=== PATIENT | male | born 1955 | race Caucasian/White ===

== ENCOUNTER → 2018-07-01 | Outpatient (CLI) | payer BC ==
[~2018-07-01] MED LIST: ADVIL200 MG PO; ASPIRIN 81M81 MG/TA2 PO; FLONASEALLERGY NS; MULTI VITAMINS1 TAB PO; NEXIUM 20MG20 MG PO; OMEGA-3 1000 MG1 CAP PO; PYRIDIUM 100MG100 MG PO
== END ==
LOC: COL.RAD 08:11
DX: N28.89 Other specified disorders of kidney and ureter (principal)
CPT/HCPCS: Q9967

== ENCOUNTER 2018-07-02 12:20 | Day surgery (SDC) | payer BC ==
[2018-07-02] VITALS (9 sets, daily range): BP systolic 124–171; BP diastolic 62–89; PULSE 52–101; TEMP 97.7–98
[~2018-07-02] VITALS: Ht 182.9 cm; Wt 103.0 kg
[2018-07-02] MEDS ORDERED: ASPIRIN 81M81 MG/TA2 PO (13:12)
[2018-07-02] MEDS ORDERED: NEXIUM 20MG20 MG PO (13:12)
[2018-07-02] MEDS ORDERED: MULTI VITAMINS1 TAB PO (13:13)
[2018-07-02] MEDS ORDERED: OMEGA-3 1000 MG1 CAP PO (13:13)
[2018-07-02] MEDS ORDERED: FLONASEALLERGY NS (13:14)
[2018-07-02] MEDS ORDERED: ADVIL200 MG PO (13:14)
--- NOTE | 2018-07-02 13:16 | NUR ---
TO RM AT 1228- CALL LIGHT IN REACH
--- NOTE | 2018-07-02 15:18 | NUR ---
Pt taken via cart to OR by ELIA Camarillo and Grayson Storm CRNA.
--- NOTE | 2018-07-02 15:45 | NUR ---
TO RM 1 PER CART FROM PACU. ALERT ORIENTED X3, TALKING TO FAMILY AND STAFF. RECEIVED MUFFIN AND JUICE. SITTING UP AND EATING. PATEL SET DRESSINGS CLEAN DRY INTACT. C/O PAIN 3/10, DENIES NEED FOR PAIN MED
--- NOTE | 2018-07-02 16:00 | NUR ---
ATE 100% AND TOLERATED WELL. RECEIVED 2ND MUFFIN AND 2ND GLASS OF WATER.
--- NOTE | 2018-07-02 16:15 | NUR ---
ATE 100% AND TOLERATED WELL. RECEIVED A SPRITE.
--- NOTE | 2018-07-02 16:25 | NUR ---
TO RM 7 PER CART FROM PACU. ALERT ORIENTED X3, TALKING TO STAFF AND . DENIES PAIN OR DISCOMFORT AT THIS TIME. DENIES N/V RECEIVED CRACKERS AND WATER
--- NOTE | 2018-07-02 16:30 | NUR ---
UP AMBULATED TO BATHROOM. UNABLE TO VOID AT THIS TIME. DR WONG CALLED, OK'D FOR PATIENT TO GO HOME. INSTRUCT PATIENT IF HE CAN NOT VOID IN THE NEXT 6-8 HOURS TO GO TO ER TO BE CATHED. INSTRUCTED PATIENT OF THIS AND HE VERBALIZED UNDERSTANDING.
[2018-07-02] MEDS ORDERED: PYRIDIUM 100MG100 MG PO (16:32)
--- NOTE | 2018-07-02 16:40 | NUR ---
ATE 100% AND TOLERATED WELL.
--- NOTE | 2018-07-02 17:00 | NUR ---
UP AMBULATED TO BATHROOM AND STATED HE VOIDED "SOME" PATIENT ALSO VOIDED 30CC IN PACU
--- NOTE | 2018-07-02 17:10 | NUR ---
RECEIVED DISCHARGE INSTRUCTIONS AND VERBALIZED UNDERSTANDING. DISCONTINUED IV AND INT.
--- NOTE | 2018-07-02 17:17 | NUR ---
RECEIVED DISCHARGE INSTRUCTIONS AND VERBALIZED UNDERSTANDING. DISCONTINUED IV AND INT- CATHETER INTACT
--- NOTE | 2018-07-02 17:20 | NUR ---
DISCHARGED PER WC BY NURSING STAFF TO PRIVATE CAR IN CARE OF HIS LEANN
--- NOTE | 2018-07-02 17:25 | NUR ---
DISCHARGED PER WC BY NURSING STAFF TO PRIVATE CAR IN CARE OF GIRLFRIEND
== END 2018-07-02 17:30 | disposition home or self-care (01) ==
LOC: SDCO 12:20
DX: C67.2 Malignant neoplasm of lateral wall of bladder (principal); E11.8 Type 2 diabetes mellitus with unspecified complications; K21.9 Gastro-esophageal reflux disease without esophagitis; E78.5 Hyperlipidemia, unspecified; F17.210 Nicotine dependence, cigarettes, uncomplicated; Z79.82 Long term (current) use of aspirin; Z79.899 Other long term (current) drug therapy; Z80.51 Family history of malignant neoplasm of kidney
CPT/HCPCS: J0690; J2405; J2704; J3010; J7120; Q9967

== ENCOUNTER 2018-07-22 16:29 | Inpatient (IN) | payer BC ==
[~2018-07-22] VITALS: Ht 183 cm; Wt 220.0 kg
[2018-08-23 09:20] LABS: HEMATOCRIT 47.1 % (42.0-52.0); HEMOGLOBIN 15.9 g/dl (13.5-18.0); MEAN CELL VOLUME 90 fl (80.0-100.0); MEAN CORPUSCULAR HEMOGLOBIN 31 pg (27.0-31.0); MEAN CORPUSCULAR HGB CONC 34 g/dl (33.0-37.0); MEAN PLATELET VOLUME 10.2 fl (7.4-10.4); PLATELET COUNT 222 K/mm3 (130-400); RED BLOOD COUNT 5.21 M/mm3 (4.20-5.60); REDCELL DISTRIBUTION WIDTH-CV 13.2 % (11.5-14.5)
[2018-08-23 09:31] LABS: CALCIUM 8.9 mg/dL (8.4-10.2); CREATININE, serum 0.81 mg/dL (0.66-1.25); POTASSIUM 3.8 mmol/L (3.4-5.0)
[2018-08-24] VITALS (10 sets, daily range): BP systolic 137–177; BP diastolic 70–94; PULSE 84–108; TEMP 97.3–98
--- NOTE | 2018-08-24 09:45 | NUR ---
PATIENT ARRIVES TO BAY 5 FOR SURGERY. IV STARTED. PRE-OP MEDS GIVEN. CONSENT SIGNED. HAS PERSONAL BELONGINGS. VS STABLE. ALERT AND ORIENTED X 3. CALL LIGHT WITHIN REACH. WILL CONTINUE TO MONITOR.
[2018-08-24] MEDS ORDERED: DUO-KAPS1 CAP PO (09:51)
[2018-08-24] MEDS ORDERED: LIPITOR 40MG TA40 MG PO (09:53)
[2018-08-24] MEDS ORDERED: TYLENOL 500MG500 MG PO (09:55)
[2018-08-24] MEDS ORDERED: CLARITIN 1010 MG/TAB PO (09:58)
[2018-08-24] MEDS ORDERED: ASPIRIN 81M81 MG/TA2 PO (10:02)
[2018-08-24] MEDS ORDERED: OMEGA-3 1000 MG1 CAP PO (10:03)
[2018-08-24 15:10] LABS: BASO # 0.1 (0.0-0.2); BASO % 0.4 % (0.0-2.0); EOS % 0.1 % (0-4.0); GRAN # 12.3 (1.4-6.5); GRAN % 90.5 % (42.2-75.2); HEMATOCRIT 46.9 % (42.0-52.0); HEMOGLOBIN 15.6 g/dl (13.5-18.0); LYMPH # 0.9 (1.2-3.4); LYMPH % 6.4 % (20.0-51.0); MEAN CELL VOLUME 91 fl (80.0-100.0); MEAN CORPUSCULAR HEMOGLOBIN 30 pg (27.0-31.0); MEAN CORPUSCULAR HGB CONC 33 g/dl (33.0-37.0); MEAN PLATELET VOLUME 9.8 fl (7.4-10.4); MONO # 0.3 (0.1-0.6); MONO % 1.9 % (1.7-9.3); PLATELET COUNT 219 K/mm3 (130-400); RED BLOOD COUNT 5.16 M/mm3 (4.20-5.60); REDCELL DISTRIBUTION WIDTH-CV 13.4 % (11.5-14.5)
[2018-08-24 15:17] LABS: CALCIUM 8.5 mg/dL (8.4-10.2); CREATININE, serum 1.18 mg/dL (0.66-1.25); POTASSIUM 3.8 mmol/L (3.4-5.0)
--- NOTE | 2018-08-24 15:52 | NUR ---
Patient received post op to room 349. Report from Diana in PACU. Patient alert, family at bedside. He reports a dull ache to his right side of abdomen. Only request water for clears at this time, denies nausea. Robotic lap site x6 open to air. Benoit drain to bulb suction. Quiles to DD. Scds ble. Will closely montior.
--- NOTE | 2018-08-24 16:31 | NUR ---
Patient requst pain medication. We reviewed the ERAS protocol & her verbalized understand. TYlenol & neurotin per orders. Will continue to montior.
--- NOTE | 2018-08-24 19:50 | NUR ---
Patient report received from ELIA Peterson at bedside during shift report. Patient is resting comfortably at this time, reporting mild cramping pain, agrees to take PRN ultram. Denies N/V. Post-op vitals still being taken. Blood pressure is trending up. Edges well approximated to lap sites. AGUEDA with bloody output. No other needs reported.
--- NOTE | 2018-08-24 21:00 | NUR ---
Dr. Chakraborty contacted. Patient's BP elevated at 177/94, HR 115. Orders given to administer one dose of Hydralazine now, followed by one more dose if SBP is >160.
[2018-08-25] VITALS (10 sets, daily range): BP systolic 119–153; BP diastolic 59–90; PULSE 84–117; TEMP 98.3–99.6
--- NOTE | 2018-08-25 07:15 | NUR ---
Dr Chakraborty here to see patient.
--- NOTE | 2018-08-25 07:25 | NUR ---
Patient report given to ELIA England at bedside. Patient resting comfortably in bed watching tv, at bedside. No needs reported at this time.
[2018-08-25 07:34] LABS: BASO % 0.1 % (0.0-2.0); GRAN # 12.9 (1.4-6.5); GRAN % 84.3 % (42.2-75.2); HEMATOCRIT 45.1 % (42.0-52.0); HEMOGLOBIN 14.9 g/dl (13.5-18.0); LYMPH # 1.2 (1.2-3.4); LYMPH % 7.6 % (20.0-51.0); MEAN CELL VOLUME 93 fl (80.0-100.0); MEAN CORPUSCULAR HEMOGLOBIN 31 pg (27.0-31.0); MEAN CORPUSCULAR HGB CONC 33 g/dl (33.0-37.0); MEAN PLATELET VOLUME 10.4 fl (7.4-10.4); MONO # 1.1 (0.1-0.6); MONO % 7.4 % (1.7-9.3); PLATELET COUNT 233 K/mm3 (130-400); RED BLOOD COUNT 4.86 M/mm3 (4.20-5.60); REDCELL DISTRIBUTION WIDTH-CV 14.1 % (11.5-14.5)
[2018-08-25 07:47] LABS: CALCIUM 8.8 mg/dL (8.4-10.2); CREATININE, serum 1.18 mg/dL (0.66-1.25); POTASSIUM 4.4 mmol/L (3.4-5.0)
--- NOTE | 2018-08-25 08:52 | NUR ---
Patient alert and oriented, answers questions appropriately. See assessment. Abdomen distended, firm, bowel sounds hyperactive x4 quads. No flatus. States feels bloated, having gas pains. Ambulation encouraged, warm pack applied to abdomen. Lap sites to abdomen with dressings CDI. AGUEDA drain compressed with dark red drainage noted. ERAS protocol reviewed with patient. Quiles catheter removed per doctors order. No other c/o at this time.
--- NOTE | 2018-08-25 10:53 | NUR ---
LUZ MARINA met with the patient and patient's , Alyce, to discuss discharge plan. The patient lives in [place] with his . He reports independence with ADLs and does not have any DME. The patient's PCP is Dr. Devonte Washington and he receives his medications at the [facility]. He reports no difficulties obtaining his meds. The patient's DPOA-HC and Living Will are in his chart. The patient plans to return home with his upon discharge. No additional needs at this time.
--- NOTE | 2018-08-25 12:08 | NUR ---
First visit from the eeg technician. No needs right now.
--- NOTE | 2018-08-25 22:20 | NUR ---
PT RESTING IN BED [id number] no pain. no n/v. some disconfort when walking to BR. incision sites DCI. AGUEDA drain is suctioned minimal drainage at this time. some light ppink drainage on gauze noted. no needs at this time. shift assessment complete/
--- NOTE | 2018-08-26 00:37 | NUR ---
pt sleeping in bed. reports gas multiple times. no BM. no needs at this time. call light in reach
--- NOTE | 2018-08-26 00:56 | NUR ---
pt reports minimal pain. pt abd distended, soft. bowel sounds x4. pt has ambulated to bathroom mult times- reports pain with ambulating, subsided once resting. lab sites open to air. AGUEDA drain is compressed with dark red drainage. drained AGUEDA 50 ml out. no needs at this time. call light in reach
[2018-08-26 04:37] VITALS: BP 141/77; PULSE 86; TEMP 99.4
--- NOTE | 2018-08-26 06:40 | NUR ---
pt had an uneventful night with minimal pain. reported getting up to use the restroom mult times. IV flushes well. nursing aid reported heart rate >100, this nurse reassessed <100. no needs at this time. call light in reach.
--- NOTE | 2018-08-26 07:28 | NUR ---
report given to diya Peterson. pt reports no needs
[2018-08-26 07:45] VITALS: BP 118/73; PULSE 84; TEMP 99.2
--- NOTE | 2018-08-26 08:25 | NUR ---
Patient resting in bed. His at bedside. Patient going to order breakfast. Reports minimal appetite. We reviewed small more frequent meals verse large meals. Patient denies nausea. Reports passing flatus, feels a BM will be soon. Bowels audible. Abdomen rounded, AGUEDA drain to bulb compression. Lap site edges well approximated. Scds. Will montior.
--- NOTE | 2018-08-26 10:02 | NUR ---
pt resting in bed. at bedside. reports decreased appetite but did try some pancakes. denies nausea. pt is passing flatus and reports 3 soft bowel movements. AGUEDA drain with bulb suction draining small blood tinged amount. lap site edges well approximated. pt reports minimal discomfort when up to the bathroom. no further needs at this time. call light within reach.
--- NOTE | 2018-08-26 10:45 | NUR ---
pt ambulating in the nielsen accompanied by .
--- NOTE | 2018-08-26 10:49 | NUR ---
Patient up ambulating the halls with his . Doing well.
[2018-08-26 12:34] VITALS: BP 150/85; PULSE 89; TEMP 99.3
--- NOTE | 2018-08-26 13:04 | NUR ---
pt up in chair. denies any pain at this time. states only slight discomfort from time to time. anxious to go home. no further needs at this time. call light within reach.
[2018-08-26 16:19] VITALS: BP 142/82; PULSE 94; TEMP 99.3
--- NOTE | 2018-08-26 16:30 | NUR ---
rounded this afternoon. Patient ready for discharge. Benoit drain DC, he tolerated fairly well. Int dc. Patient given all discharge teaching. Script for [place] & colace sent with patient. We reviewed medication safety. Patient understands the importance of staying hydrated & eating smaller more frequent meals. Patient verbalized understanding of signs & symptoms of infection & when to call the doctor. We discussed with low grade temp & concerns of tachycardia-patient is going to monitor his vitals closely at home-his is a nurse. Patient wheeled out with all belongigns. His taking him home. They deny questions or concerns.
== END 2018-08-26 16:37 | disposition home or self-care (01) | DRG 658 ==
LOC: INPTSU 08-24 09:02 → SURG 08-24 11:15
PROVIDERS: ADMIT Urology
PROC: 8E0W4CZ Robotic Assisted Procedure of Trunk Region, Percutaneous Endoscopic Approach (ICD-10-PCS; 2018-08-24)
PROC: 0TB04ZZ Excision of Right Kidney, Percutaneous Endoscopic Approach (ICD-10-PCS; principal; 2018-08-24 11:15)
DX: C64.1 Malignant neoplasm of right kidney, except renal pelvis (principal); E11.9 Type 2 diabetes mellitus without complications; Z85.51 Personal history of malignant neoplasm of bladder; K21.9 Gastro-esophageal reflux disease without esophagitis; E78.5 Hyperlipidemia, unspecified; Z72.0 Tobacco use; R00.0 Tachycardia, unspecified; I10 Essential (primary) hypertension; Z88.0 Allergy status to penicillin; Z91.041 Radiographic dye allergy status
CPT/HCPCS: A4314; A9284; J0360; J1100; J2250; J2405; J2704; J2765; J2795; J7030; J7040

== ENCOUNTER → 2018-08-17 | Outpatient (CLI) | payer BC | LOC: COL.RAD 12:52 | DX: Z01.818 Encounter for other preprocedural examination (principal); Z87.891 Personal history of nicotine dependence ==

== ENCOUNTER 2019-01-25 08:52 | Day surgery (SDC) | payer BC ==
[2019-01-25] VITALS (8 sets, daily range): BP systolic 132–161; BP diastolic 64–80; PULSE 56–65; TEMP 98.6–98.8
[~2019-01-25] VITALS: Ht 182.9 cm; Wt 104.2 kg
[~2019-01-25 08:52] MED LIST changes: +CLARITIN 1010 MG/TAB PO; +DUO-KAPS1 CAP PO; +LIPITOR 40MG TA40 MG PO; +TYLENOL 500MG500 MG PO
[2019-01-25] MEDS ORDERED: ASPIRIN E.C. 8181 MG PO (09:47)
--- NOTE | 2019-01-25 09:50 | NUR ---
BEDRAIL UP X 2. CALL LIGHT WITHIN REACH. CONSENT SIGNED. IV INTACT AND INFUSING AT 100ML/HR. QUESTIONS ANSWERED.
--- NOTE | 2019-01-25 12:45 | NUR ---
Pt verified at bedside with name and . Mitomycin double checked with Kemi Smith RN. Chemo gown, mask with eye sheild and douple gloves donned. Quiles emptied and disconnected. Mitomycin instilled in bladder via catheter and catheter clamped. Pt shannon well. Chemo protective wear doffed and disposed of in chemo waste. Pt instructed for rotate position every 15 min for 2 hours.
--- NOTE | 2019-01-25 14:15 | NUR ---
VSS. PATIENT DENIES DISCOMFORT AND NAUSEA. PATIENT CONTINUES TO TURN INSTRUCTED WITHOUT PROBLEMS.
[2019-01-25] MEDS ORDERED: PYRIDIUM 100MG100 MG PO (14:42)
--- NOTE | 2019-01-25 14:45 | NUR ---
Pt completed 2 hour of mitomycin bladder dwell time. Chemo gown, mask with eye shield and double gloves donned. Catheter unclamped and bladder drained into freeman. 1000 mL urine drained and emptied into toilet. Toilet covered with chux and double flushed. Catheter balloon deflated and catheter removed. Freida care administered. Catheter and freeman bag discarded in chemo waste. Chemo protective wear doffed and disposed of in chemo waste. Pt shannon well.
--- NOTE | 2019-01-25 15:36 | NUR ---
PATIENT TO BAY 7 PER BED ACCOMPANIED BY PACU STAFF. MONITORS APPLIED. VSS. SHASHIRN NOTIFIED OF PATIENT'S ARRIVAL TO AMBULATORY UNIT. AT BEDSIDE. IV INFUSING. IV SITE WITHOUT REDDNESS OR SWELLING.
--- NOTE | 2019-01-25 15:39 | NUR ---
VSS. PATIENT DENIES PAIN OR NAUSEA. PATIENT GIVEN TOAST WITH PEANUTBUTTER AND JELLY. ELIA DANIELLE IN ROOM PERFORMING MITOCYIN INFUSION. GIVEN INSTRUCTIONS AND QUESTIONS ANSWERED.
--- NOTE | 2019-01-25 15:42 | NUR ---
VSS. PATIENT CONTINUES TO DENY DISCOMFORT AND NAUSEA. PATIENT TURNS TO SIDE INSTRUCTED.
--- NOTE | 2019-01-25 15:44 | NUR ---
VSS. PATIENT DENIES DISCOMFORT AND NAUSEA. PATIENT ON TABLET READING. PATIENT TURNING INSTRUCTED.
--- NOTE | 2019-01-25 15:46 | NUR ---
VSS. PATIENT DENIES DISCOMFORT AND PAIN. PATIENT TURNING INSTRUCTED.
--- NOTE | 2019-01-25 15:54 | NUR ---
VSS. ELIA DANIELLE HERE TO DC INFUSION AND REMOVED PACHECO CATHETER. SEE ELIA DANIELLE NOTES. IV SITE DC'D WITH TIP. DISCHARGE INSTRUCTIONS GIVEN VERBAL AND WRITTEN. QUESTIONS ANSWERED AND PATIENT VOICED UNDERSTANDING.
== END 2019-01-25 15:30 | disposition home or self-care (01) ==
LOC: SDCO 08:52
DX: C67.4 Malignant neoplasm of posterior wall of bladder (principal); E11.9 Type 2 diabetes mellitus without complications; K21.9 Gastro-esophageal reflux disease without esophagitis; C64.1 Malignant neoplasm of right kidney, except renal pelvis; E78.5 Hyperlipidemia, unspecified; Z90.5 Acquired absence of kidney; Z79.899 Other long term (current) drug therapy; Z88.0 Allergy status to penicillin; Z91.041 Radiographic dye allergy status; F17.200 Nicotine dependence, unspecified, uncomplicated; M19.042 Primary osteoarthritis, left hand; M16.11 Unilateral primary osteoarthritis, right hip
CPT/HCPCS: J0690; J1100; J2405; J2704; J3010; J7120; J9280

== ENCOUNTER → 2019-04-05 | Outpatient (CLI) | payer BC ==
[~2019-04-05] MED LIST changes: +ASPIRIN E.C. 8181 MG PO
== END ==
LOC: COL.RAD 09:43
DX: Z01.812 Encounter for preprocedural laboratory examination (principal); C67.2 Malignant neoplasm of lateral wall of bladder; Z98.890 Other specified postprocedural states
CPT/HCPCS: Q9967

== ENCOUNTER → 2020-02-02 | Outpatient (CLI) | payer BC ==
[2020-02-02 10:11] LABS: CREATININE, serum 0.94 (0.66-1.25)
== END ==
LOC: COL.LAB 09:41
PROVIDERS: Urology
DX: Z85.520 Personal history of malignant carcinoid tumor of kidney (principal)

== ENCOUNTER → 2021-04-23 | Outpatient (CLI) | payer BC | LOC: COL.RAD 08:15 | DX: C67.2 Malignant neoplasm of lateral wall of bladder (principal); R31.0 Gross hematuria; Z90.5 Acquired absence of kidney; Z85.528 Personal history of other malignant neoplasm of kidney | CPT/HCPCS: Q9967 ==

== ENCOUNTER → 2023-06-02 | Outpatient (CLI) | payer MEDICARE | LOC: COL.RAD 08:35 | DX: C67.2 Malignant neoplasm of lateral wall of bladder (principal); R93.421 Abnormal radiologic findings on diagnostic imaging of right kidney; Z90.5 Acquired absence of kidney ==

== ENCOUNTER → 2023-06-10 | Outpatient (CLI) | payer MEDICARE, OTHER | LOC: COL.RAD 10:11 | DX: R93.421 Abnormal radiologic findings on diagnostic imaging of right kidney (principal); Z90.5 Acquired absence of kidney | CPT/HCPCS: Q9967 ==

== ENCOUNTER → 2024-02-11 | Outpatient (CLI) | payer SELFPAY | LOC: WSPT 10:36 | DX: M77.12 Lateral epicondylitis, left elbow (principal) ==

== ENCOUNTER → 2024-02-18 | Outpatient (CLI) | payer SELFPAY | LOC: WSPT 09:27 | DX: M77.12 Lateral epicondylitis, left elbow (principal) ==

== ENCOUNTER → 2024-02-25 | Outpatient (CLI) | payer SELFPAY | LOC: WSPT 10:46 | DX: M77.10 Lateral epicondylitis, unspecified elbow (principal) ==

== ENCOUNTER → 2024-03-03 | Outpatient (CLI) | payer SELFPAY | LOC: WSPT 10:05 | DX: M77.10 Lateral epicondylitis, unspecified elbow (principal) ==

== ENCOUNTER → 2024-03-10 | Outpatient (CLI) | payer SELFPAY | LOC: WSPT 13:24 | DX: M77.12 Lateral epicondylitis, left elbow (principal) ==

== ENCOUNTER → 2024-03-17 | Outpatient (CLI) | payer SELFPAY | LOC: WSPT 09:16 | DX: M77.10 Lateral epicondylitis, unspecified elbow (principal) ==

== ENCOUNTER → 2024-03-24 | Outpatient (CLI) | payer SELFPAY | LOC: WSPT 08:33 | DX: M77.10 Lateral epicondylitis, unspecified elbow (principal) ==

== ENCOUNTER → 2024-04-08 | Outpatient (CLI) | payer SELFPAY | LOC: WSPT 10:39 | DX: M77.10 Lateral epicondylitis, unspecified elbow (principal) ==